=== PATIENT | male | born 1960 | race Caucasian/White ===

== ENCOUNTER 2017-11-30 17:58 | Emergency (ER) | payer MEDICARE, MEDICAID ==
[~2017-11-30] VITALS: Ht 170.2 cm; Wt 79.3 kg
[2017-11-30] MEDS ORDERED: adenosine 3mg/ml 2ml vial IV ONE ×2 (18:10)
[2017-11-30] MEDS ORDERED: nitroGLYCERIN 0.4mg SUBLingual tab SL PRN (18:15)
[2017-11-30] MEDS ORDERED: aspirin 81mg tab.chew PO ONE (18:15)
[2017-11-30 18:16] LABS: BASOPHILS # (AUTO) 0.1 X10'3 (0-0.2); BASOPHILS % (AUTO) 0.9 % (0-1); EOSINOPHILS # (AUTO) 0.2 X10'3 (0-0.9); EOSINOPHILS % (AUTO) 2.2 % (0-6); HEMATOCRIT 49.6 % (42.0-52.0); LYMPHOCYTES # (AUTO) 2.2 X10'3 (1.1-4.8); LYMPHOCYTES % (AUTO) 30.2 % (21-51); MEAN CORPUSCULAR HEMOGLOBIN 31.1 PG (27.0-31.0); MEAN CORPUSCULAR HGB CONC 34.3 % (33.0-36.5); MEAN CORPUSCULAR VOLUME 90.8 FL (78-98); MEAN PLATELET VOLUME 7.6 FL (7.4-10.4); MONOCYTES # (AUTO) 0.6 X10'3 (0-0.9); MONOCYTES % (AUTO) 8.5 % (2-12); NEUTROPHILS # (AUTO) 4.3 X10'3 (1.8-7.7); NEUTROPHILS % (AUTO) 58.2 % (42-75); PLATELET COUNT 141 X10'3 (140-440); RED BLOOD COUNT 5.46 X10'6 (4.70-6.10); RED CELL DISTRIBUTION WIDTH 15.1 % (11.5-14.5); WHITE BLOOD COUNT 7.4 X10'3 (4.5-11.0)
[2017-11-30] MEDS ORDERED: metoprolol tartrate 1mg/ml inj IV ONE ×2 (18:25→18:40)
[2017-11-30 18:26] LABS: INR 1.1 INR; PARTIAL THROMBOPLASTIN TIME 28 SECONDS (22-32); PROTHROMBIN TIME 11.4 SECONDS (9.0-12.0)
[2017-11-30 18:31] LABS: ALANINE AMINOTRANSFERASE 24 U/L (12-78); ALKALINE PHOSPHATASE 127 IU/L (46-116); ANION GAP 11 (8-16); ASPARTATE AMINO TRANSFERASE 16 U/L (10-37); BILIRUBIN,TOTAL 0.9 MG/DL (0.1-1.0); BLOOD UREA NITROGEN 15 MG/DL (7-18); BUN/CREATININE RATIO 9.4 (5.4-32.0); CALCIUM 8.5 MG/DL (8.5-10.1); CHLORIDE 109 MMOL/L (99-107); CREATININE 1.59 MG/DL (0.60-1.10); GLUCOSE 111 MG/DL (70-104); POTASSIUM 4.4 MMOL/L (3.5-5.1); SODIUM 143 MMOL/L (135-145); TOTAL CARBON DIOXIDE 22.6 MMOL/L (24-32); TOTAL PROTEIN 8.2 G/DL (6.4-8.2); eGFR 45 ML/MIN
[2017-11-30 18:54] LABS: ETHANOL < 0.010 GM/DL (0.0-0.010)
[2017-11-30] MEDS ORDERED: normal saline 1000ml 1,000 ML IV ONE (19:30)
[2017-11-30] MEDS ORDERED: METO-395 PO (20:03)
[2017-11-30 20:59] VITALS: BP 123/80
== END 2017-11-30 21:04 | disposition home or self-care (01) ==
LOC: ER 17:59
DX: I47.1 Supraventricular tachycardia (principal); N17.9 Acute kidney failure, unspecified; E86.0 Dehydration; F10.10 Alcohol abuse, uncomplicated; Y90.9 Presence of alcohol in blood, level not specified
CPT/HCPCS: 36415; 71045; 80053; 80320; 83880; 84484; 85025; 85610; 85730; 93005; 96361; 96374; 99285; J0153; J3490; J7030

== ENCOUNTER 2018-03-24 12:30 | Emergency (ER) | payer MEDICARE, MEDICAID ==
[~2018-03-24] VITALS: Ht 170.2 cm; Wt 77.0 kg
[~2018-03-24 12:30] MED LIST: METO-395 PO
[2018-03-24] MEDS ORDERED: LIDOcaine Viscous 15ml cup ONE (15:22)
[2018-03-24] MEDS ORDERED: MIDAZolam 5mg/5ml vial ONE (15:22)
[2018-03-24] MEDS ORDERED: fentaNYL/PF 50MCG/1 ML 2ML syringe ONE (15:22)
[2018-03-24 15:50] VITALS: BP 119/54
[2018-03-24 16:00] VITALS: BP 117/81
[2018-03-24 16:10] VITALS: BP 120/78
[2018-03-24 16:20] VITALS: BP 113/74
[2018-03-24 16:25] VITALS: BP 116/77
[2018-03-24] MEDS ORDERED: OMEP20TA23 PO (16:41)
[2018-03-24 17:07] VITALS: BP 127/73
== END 2018-03-24 17:11 | disposition home or self-care (01) ==
LOC: ER 12:30
DX: T18.128A Food in esophagus causing other injury, initial encounter (principal); Z79.899 Other long term (current) drug therapy; W45.8XXA Other foreign body or object entering through skin, initial encounter; Y93.89 Activity, other specified; Y92.89 Other specified places as the place of occurrence of the external cause; Y99.8 Other external cause status
CPT/HCPCS: 43247; 99152; 99153; 99285; J2250; J3010; J7030; A4620; G0500

== ENCOUNTER 2018-06-07 13:46 | Day surgery (SDC) | payer MEDICARE, MEDICAID ==
[~2018-06-07] VITALS: Ht 170.2 cm; Wt 72.7 kg
[~2018-06-07 13:46] MED LIST changes: +OMEP20TA23 PO
[2018-06-07 13:53] VITALS: BP 122/84
[2018-06-07] MEDS ORDERED: METO-395 PO (14:12)
[2018-06-07] MEDS ORDERED: OMEP20TA5 PO (14:13)
[2018-06-07] MEDS ORDERED: MIDAZolam 5mg/5ml vial ONE ×2 (14:25→14:35)
[2018-06-07] MEDS ORDERED: LIDOcaine Viscous 15ml cup ONE (14:25)
[2018-06-07] MEDS ORDERED: fentaNYL/PF 50MCG/1 ML 2ML syringe ONE (14:25)
[2018-06-07 14:49] VITALS: BP 120/83
[2018-06-07 14:59] VITALS: BP 117/77
[2018-06-07 15:09] VITALS: BP 119/72
[2018-06-07 15:19] VITALS: BP 115/74
== END 2018-06-07 15:49 | disposition home or self-care (01) ==
LOC: GI LAB 13:46
PROVIDERS: ATTEND Internal Medicine Gastroenterology
DX: K20.9 Esophagitis, unspecified (principal); K29.70 Gastritis, unspecified, without bleeding; K22.8 Other specified diseases of esophagus; K26.9 Duodenal ulcer, unspecified as acute or chronic, without hemorrhage or perforation; F17.210 Nicotine dependence, cigarettes, uncomplicated; J43.9 Emphysema, unspecified; F32.9 Major depressive disorder, single episode, unspecified; Z72.89 Other problems related to lifestyle; Z98.890 Other specified postprocedural states; Z79.899 Other long term (current) drug therapy
CPT/HCPCS: 43239; G0500; J2250; J3010; J7030; A4620

== ENCOUNTER 2018-10-26 10:57 | Emergency (ER) | payer MEDICARE, MEDICAID ==
[~2018-10-26] VITALS: Ht 167.6 cm; Wt 71.8 kg
[~2018-10-26 10:57] MED LIST changes: -OMEP20TA23 PO; +OMEP20TA5 PO
[2018-10-26] MEDS ORDERED: HYDROmorphone inj. 0.5 MG/0.5 ML DISP.SYRIN IV ONE (12:10)
[2018-10-26] MEDS ORDERED: ondansetron/PF 4mg/2ml inj IV ONE (12:10)
[2018-10-26] MEDS ORDERED: diphenhydrAMINE 50 mg/ml inj IV ONE (13:10)
[2018-10-26] MEDS ORDERED: acetaminophen 325mg tablet PO ONE (13:10)
[2018-10-26 13:41] VITALS: BP 107/76
== END 2018-10-26 13:42 | disposition home or self-care (01) ==
LOC: ER 10:58
DX: R52 Pain, unspecified (principal); T45.1X5A Adverse effect of antineoplastic and immunosuppressive drugs, initial encounter; Z79.899 Other long term (current) drug therapy; Y92.89 Other specified places as the place of occurrence of the external cause
CPT/HCPCS: 96374; 96375; 99283; J1170; J1200; J2405

== ENCOUNTER 2018-12-14 15:09 | Inpatient (IN) | payer MEDICARE, MEDICAID | END 2018-12-20 15:30 | LOC: ER 15:09 → ED HOLD 17:51 → PCU 3S 12-15 16:01 | PROC: 0DJ08ZZ Inspection of Upper Intestinal Tract, Via Natural or Artificial Opening Endoscopic (ICD-10-PCS; principal; ~2018-12-14) | DX: K22.11 Ulcer of esophagus with bleeding (principal); D62 Acute posthemorrhagic anemia; N17.9 Acute kidney failure, unspecified; E87.2 Acidosis; K92.2 Gastrointestinal hemorrhage, unspecified; E83.42 Hypomagnesemia; K70.30 Alcoholic cirrhosis of liver without ascites; E83.51 Hypocalcemia ==

== ENCOUNTER 2019-02-07 13:19 | Inpatient (IN) | payer MEDICARE, MEDICAID ==
[~2019-02-07] VITALS: Ht 172.7 cm; Wt 68.0 kg
[2019-02-07 13:56] LABS: HEMOGLOBIN 9.4 g/dl (14.0-17.9); LYMPHOCYTES # (AUTO) 0.3 X10'3 (1.1-4.8)
[2019-02-07 13:58] LABS: BASOPHILS % (AUTO) 0.6 % (0-1); EOSINOPHILS % (AUTO) 0.3 % (0-6); HEMATOCRIT 27.3 % (42.0-52.0); LYMPHOCYTES % (AUTO) 3.8 % (21-51); MEAN CORPUSCULAR HEMOGLOBIN 33.7 PG (27.0-31.0); MEAN CORPUSCULAR HGB CONC 34.4 g/dL (33.0-36.5); MEAN PLATELET VOLUME 8.8 FL (7.4-10.4); MONOCYTES % (AUTO) 0.5 % (2-12); NEUTROPHILS # (AUTO) 7.1 X10'3 (1.8-7.7); NEUTROPHILS % (AUTO) 94.8 % (42-75); PLATELET COUNT 52 X10'3 (140-440); RED BLOOD COUNT 2.79 X10'6 (4.70-6.10); RED CELL DISTRIBUTION WIDTH 15.3 % (11.5-14.5); WHITE BLOOD COUNT 7.5 X10'3 (4.5-11.0)
[2019-02-07 14:03] LABS: PARTIAL THROMBOPLASTIN TIME 32 SECONDS (22-32)
[2019-02-07 14:05] LABS: ALANINE AMINOTRANSFERASE 23 U/L (12-78); ALBUMIN 2.5 G/DL (3.4-5.0); ALKALINE PHOSPHATASE 136 IU/L (46-116); ANION GAP 6 (8-16); ASPARTATE AMINO TRANSFERASE 22 U/L (10-37); BILIRUBIN,TOTAL 0.5 MG/DL (0.1-1.0); BLOOD UREA NITROGEN 39 MG/DL (7-18); BUN/CREATININE RATIO 33.1 (5.4-32.0); CALCIUM 7.3 MG/DL (8.5-10.1); CHLORIDE 111 MMOL/L (99-107); CREATININE 1.18 MG/DL (0.60-1.10); GLUCOSE 105 MG/DL (70-104); LIPASE 131 U/L (73-393); MAGNESIUM 1.7 MG/DL (1.5-2.4); POTASSIUM 3.8 MMOL/L (3.5-5.1); SODIUM 139 MMOL/L (135-145); TOTAL CARBON DIOXIDE 21.9 MMOL/L (24-32); eGFR 63 ML/MIN
[2019-02-07 14:13] LABS: CLARITY,URINE CLEAR (Clear); COLOR,URINE YELLOW (Yellow); GLUCOSE, URINE NEGATIVE (Neg); KETONES,URINE NEGATIVE (Neg); LEUKOCYTE ESTERASE ,URINE TRACE (Neg); NITRITES, URINE NEGATIVE (Neg); OCCULT BLOOD,URINE NEGATIVE (Neg); PH,URINE 5.5 (4.8-8.0); PROTEIN,URINE NEGATIVE (Neg)
[2019-02-07] MEDS ORDERED: ondansetron/PF 4mg/2ml inj IV ONE (14:15)
[2019-02-07] MEDS ORDERED: proCHLORperazine 10 MG/2 ml inj IV ONE (14:15)
[2019-02-07] MEDS ORDERED: normal saline 1000ML IV soln IVB ONE (14:15)
[2019-02-07 14:19] LABS: UA COLLECTION TYPE CLN CATCH MIDSTREAM
[2019-02-07 14:20] LABS: BACTERIA,URINE FEW /HPF (Neg); COARSE GRANULAR CAST 0-3 /LPF (NEGATIVE); MUCUS STRANDS NONE SEEN /LPF (Neg); RBC,URINE NONE SEEN /HPF (0-2); SQUAMOUS EPITHELIAL CELL,UR FEW /LPF (FEW); WBC,URINE 0-4 /HPF (0-4)
[2019-02-07] MEDS ORDERED: LORazepam 2 mg/ml vial IV ONE (14:35)
[2019-02-07] MEDS ORDERED: bisacodyl 10mg suppository rectal RC PRN (15:55)
[2019-02-07] MEDS ORDERED: potassium Cl 20 mEq SR tablet PO PRN ×2 (15:55)
[2019-02-07] MEDS ORDERED: magnesium hydroxide 30ml (MOM) UD suspension PO PRN (15:55)
[2019-02-07] MEDS ORDERED: acetaminophen 325mg tablet PO PRN ×2 (15:55)
[2019-02-07] MEDS ORDERED: metoclopramide 5 mg/ml inj IV PRN (15:55)
[2019-02-07] MEDS ORDERED: magnesium 2GM in 50ml NS 50 ML IV PRN (15:55)
[2019-02-07] MEDS ORDERED: morphine 2 MG/ML inj. syringe IV PRN (15:55)
[2019-02-07] MEDS ORDERED: diphenhydrAMINE 50 mg/ml inj IV PRN (15:55)
[2019-02-07] MEDS ORDERED: ondansetron/PF 4mg/2ml inj IV PRN (15:55)
[2019-02-07] MEDS ORDERED: HYDROcodone/acetaminophen 5mg/325mg tablet PO PRN (15:55)
[2019-02-07] MEDS ORDERED: magnesium 4gm in 100ml NS 100 ML IV PRN (15:55)
[2019-02-07] MEDS ORDERED: mag hydrox/Alum hydrox/simeth 30ml oral suspension PO PRN (15:55)
[2019-02-07] MEDS ORDERED: diphenhydrAMINE 25mg capsule PO PRN (15:55)
[2019-02-07] MEDS ORDERED: acetaminophen 650mg rectal suppository RC PRN (15:55)
[2019-02-07] MEDS: K and/or MAG REPLACEMENT MC SCH (15:55)
[2019-02-07] MEDS ORDERED: potassium Cl 40MEQ/NS 500ml 500 ML IV PRN (15:55)
[2019-02-07] MEDS ORDERED: potassium CL 10mEq/100ml bag 100 ML IV PRN (15:55)
[2019-02-07] MEDS: dextrose 5%-normal saline 1,000 ML IV SCH (16:18)
[2019-02-07 16:23] LABS: HEMOGLOBIN A1C 4.8 % (4.5-6.2)
[2019-02-07] MEDS ORDERED: MULT-691 PO (16:30)
[2019-02-07] MEDS ORDERED: DOCU100C41 PO (16:30)
[2019-02-07] MEDS ORDERED: ACET-2778 PO (16:30)
[2019-02-07] MEDS ORDERED: OMEP40CA37 PO (16:30)
[2019-02-07] MEDS ORDERED: PROC-8 PO (16:30)
[2019-02-07] MEDS ORDERED: DEC4T PO (16:30)
[2019-02-07] MEDS: scopolamine 1.5mg patch.TD72 TD SCH (16:34)
[2019-02-07] MEDS ORDERED: ACETAMINOPHEN PO PRN (18:10)
[2019-02-07] MEDS ORDERED: proCHLORperazine 10mg tablet PO PRN (18:10)
[2019-02-07 18:35] VITALS: BP 111/60
--- NOTE | 2019-02-07 18:35 | NUR ---
PATIENT ADMITTED TO ROOM 353 FROM ER FOR NAUSEA/VOMITING FROM CHEMOTHERAPY AND DEHYDRATION. PLACED COMFORTABLE IN BED. VITAL SIGNS TAKEN AND RECORDED.
[2019-02-07] MEDS: HYDROcodone/acetaminophen 10/325mg tab PO PRN (19:58)
[2019-02-07] MEDS ORDERED: temazepam 15mg capsule PO PRN (21:00)
[2019-02-07] MEDS: dexamethasone 4mg tablet PO SCH (21:35)
[2019-02-08] VITALS: BP 94/58
[2019-02-08] MEDS: dextrose 5%-normal saline 1,000 ML IV SCH ×3 (02:06→19:20)
[2019-02-08] MEDS: HYDROcodone/acetaminophen 10/325mg tab PO PRN ×2 (03:15→19:18)
[2019-02-08 05:03] LABS: BASOPHILS % (AUTO) 0.2 % (0-1); EOSINOPHILS % (AUTO) 0.1 % (0-6); HEMATOCRIT 25.3 % (42.0-52.0); HEMOGLOBIN 8.7 g/dl (14.0-17.9); LYMPHOCYTES # (AUTO) 0.1 X10'3 (1.1-4.8); MEAN CORPUSCULAR HEMOGLOBIN 33.5 PG (27.0-31.0); MEAN CORPUSCULAR HGB CONC 34.3 g/dL (33.0-36.5); MEAN CORPUSCULAR VOLUME 97.5 FL (78-98); MEAN PLATELET VOLUME 8.6 FL (7.4-10.4); MONOCYTES % (AUTO) 0.9 % (2-12); NEUTROPHILS # (AUTO) 2.3 X10'3 (1.8-7.7); NEUTROPHILS % (AUTO) 94.8 % (42-75); RED BLOOD COUNT 2.59 X10'6 (4.70-6.10); RED CELL DISTRIBUTION WIDTH 15.5 % (11.5-14.5); WHITE BLOOD COUNT 2.4 X10'3 (4.5-11.0)
[2019-02-08 05:06] LABS: ALANINE AMINOTRANSFERASE 21 U/L (12-78); ALBUMIN 2.2 G/DL (3.4-5.0); ALBUMIN/GLOBULIN RATIO 0.9 (1.1-1.5); ALKALINE PHOSPHATASE 118 IU/L (46-116); ANION GAP 9 (8-16); ASPARTATE AMINO TRANSFERASE 19 U/L (10-37); BILIRUBIN,TOTAL 0.5 MG/DL (0.1-1.0); BLOOD UREA NITROGEN 27 MG/DL (7-18); BUN/CREATININE RATIO 24.8 (5.4-32.0); CHLORIDE 112 MMOL/L (99-107); CHOL/HDL RATIO 3.1 (0.00-4.99); CHOLESTEROL 136 MG/DL (0-200); CREATININE 1.09 MG/DL (0.60-1.10); GLUCOSE 135 MG/DL (70-104); HDL CHOLESTEROL 44 MG/DL (35-60); LDL CHOLESTEROL 74 MG/DL (50-100); MAGNESIUM 1.4 MG/DL (1.5-2.4); PHOSPHORUS 3.4 MG/DL (2.3-4.5); PLATELET COUNT 32 X10'3 (140-440); POTASSIUM 4.8 MMOL/L (3.5-5.1); SODIUM 141 MMOL/L (135-145); TOTAL PROTEIN 4.7 G/DL (6.4-8.2); TRIGLYCERIDES 123 MG/DL (20-135); eGFR 69 ML/MIN
--- NOTE | 2019-02-08 05:19 | NUR ---
PAGED DR. JAY ABOUT PATIENT'S PLATELET OF 32, WBC IS 2.4 NO NEW ORDERS MADE.
--- NOTE | 2019-02-08 06:30 | NUR ---
Problems reprioritized. Patient report given, questions answered & plan of care reviewed with SERENE MCKEON.
[2019-02-08 07:00] VITALS: BP 106/54
[2019-02-08 08:00] VITALS: BP 129/62
[2019-02-08] MEDS ORDERED: MULTIVITS TH W FE OTHER MIN PO SCH (08:00)
[2019-02-08] MEDS: K and/or MAG REPLACEMENT MC SCH (08:00)
[2019-02-08] MEDS ORDERED: non-formulary drug (Omeprazole (Prilosec) 1 CAP) PO SCH (08:00)
[2019-02-08 09:46] LABS: TOTAL CELLS COUNTED 100
[2019-02-08 09:57] LABS: PLATELET ESTIMATE DECREASED
[2019-02-08] MEDS: pantoprazole 40mg Tablet.DR PO SCH (10:16)
[2019-02-08] MEDS: dexamethasone 4mg tablet PO SCH ×2 (10:16→19:22)
[2019-02-08] MEDS: multivitamins, therapeutics tablet PO SCH (10:16)
[2019-02-08] MEDS: magnesium Cl slow-release 64mg tablet PO PRN (10:16)
[2019-02-08] MEDS: docusate sod 100mg capsule PO SCH (10:16)
[2019-02-08 10:18] LABS: ANISOCYTOSIS FEW
[2019-02-08 10:19] LABS: POIKILOCYTOSIS FEW; TEAR DROP CELLS FEW
[2019-02-08 12:00] VITALS: BP 129/62
--- NOTE | 2019-02-08 18:30 | NUR ---
Patient in room [facility]. I have received report from SERENE MCKEON and had the opportunity to ask questions and assume patient care.
[2019-02-08] MEDS: LORazepam 1 MG tablet PO PRN (19:18)
[2019-02-08 20:00] VITALS: BP_SYST 128; BP_SYST 132; BP_DIAS 60; BP_DIAS 66
[2019-02-09] VITALS: BP 128/69
[2019-02-09 05:24] LABS: BASOPHILS % (AUTO) 0.5 % (0-1); EOSINOPHILS % (AUTO) 0.7 % (0-6); HEMATOCRIT 27.4 % (42.0-52.0); HEMOGLOBIN 9.4 g/dl (14.0-17.9); LYMPHOCYTES # (AUTO) 0.1 X10'3 (1.1-4.8); LYMPHOCYTES % (AUTO) 11.6 % (21-51); MEAN CORPUSCULAR HEMOGLOBIN 33.5 PG (27.0-31.0); MEAN CORPUSCULAR HGB CONC 34.4 g/dL (33.0-36.5); MEAN CORPUSCULAR VOLUME 97.6 FL (78-98); MEAN PLATELET VOLUME 9.8 FL (7.4-10.4); MONOCYTES % (AUTO) 2.3 % (2-12); NEUTROPHILS # (AUTO) 0.9 X10'3 (1.8-7.7); NEUTROPHILS % (AUTO) 84.9 % (42-75); RED BLOOD COUNT 2.81 X10'6 (4.70-6.10); RED CELL DISTRIBUTION WIDTH 14.9 % (11.5-14.5); WHITE BLOOD COUNT 1.1 X10'3 (4.5-11.0)
[2019-02-09 05:48] LABS: ALANINE AMINOTRANSFERASE 20 U/L (12-78); ALBUMIN 2.5 G/DL (3.4-5.0); ALBUMIN/GLOBULIN RATIO 0.9 (1.1-1.5); ALKALINE PHOSPHATASE 134 IU/L (46-116); ANION GAP 11 (8-16); ASPARTATE AMINO TRANSFERASE 16 U/L (10-37); BILIRUBIN,TOTAL 0.5 MG/DL (0.1-1.0); BLOOD UREA NITROGEN 25 MG/DL (7-18); BUN/CREATININE RATIO 25.5 (5.4-32.0); CALCIUM 7.7 MG/DL (8.5-10.1); CHLORIDE 108 MMOL/L (99-107); CREATININE 0.98 MG/DL (0.60-1.10); GLUCOSE 149 MG/DL (70-104); MAGNESIUM 1.2 MG/DL (1.5-2.4); PHOSPHORUS 2.2 MG/DL (2.3-4.5); POTASSIUM 4.7 MMOL/L (3.5-5.1); SODIUM 137 MMOL/L (135-145); TOTAL CARBON DIOXIDE 18.5 MMOL/L (24-32); TOTAL PROTEIN 5.2 G/DL (6.4-8.2); eGFR 79 ML/MIN
[2019-02-09] MEDS: dextrose 5%-normal saline 1,000 ML IV SCH ×2 (05:48→13:22)
--- NOTE | 2019-02-09 06:25 | NUR ---
Problems reprioritized. Patient report given, questions answered & plan of care reviewed with ADRIEN MCKEON.
[2019-02-09] MEDS: K and/or MAG REPLACEMENT MC SCH (06:47)
[2019-02-09 06:48] LABS: PLATELET COUNT 29 X10'3 (140-440)
[2019-02-09 07:00] VITALS: BP 119/74
[2019-02-09] MEDS: multivitamins, therapeutics tablet PO SCH (07:46)
[2019-02-09] MEDS: pantoprazole 40mg Tablet.DR PO SCH (07:46)
[2019-02-09] MEDS: dexamethasone 4mg tablet PO SCH ×2 (07:46→19:15)
[2019-02-09] MEDS: docusate sod 100mg capsule PO SCH (07:46)
[2019-02-09 09:31] LABS: ELLIPTOCYTES FEW; PLATELET ESTIMATE DECREASED; SCHISTOCYTES FEW; TEAR DROP CELLS FEW; TOTAL CELLS COUNTED 100
--- NOTE | 2019-02-09 10:08 | NUR ---
Report to Lupe MCKEON. Addendum: 02/09/19 at 1008 by Evelyn Castellanos RN Amended: Links added.
[2019-02-09] MEDS: TBO-filgrastim 480 MCG/0.8ml syringe SQ SCH (11:02)
[2019-02-09] MEDS: LORazepam 1 MG tablet PO PRN ×2 (11:02→19:14)
[2019-02-09] MEDS: HYDROcodone/acetaminophen 10/325mg tab PO PRN ×2 (11:03→19:14)
[2019-02-09 11:49] VITALS: BP 123/56
[2019-02-09 11:51] VITALS: BP 127/67
[2019-02-09 11:52] VITALS: BP 107/61
[2019-02-09] MEDS: sodium bicarbonate 650mg tablet PO SCH ×2 (13:20→19:15)
--- NOTE | 2019-02-09 18:48 | NUR ---
Problems reprioritized. Patient report given, questions answered & plan of care reviewed with ANNAMARIA YIN RN.
--- NOTE | 2019-02-09 18:50 | NUR ---
Patient in room [facility]. I have received report from BARTOLO MCKEON and had the opportunity to ask questions and assume patient care.
[2019-02-09 20:00] VITALS: BP_SYST 121; BP_SYST 127; BP_DIAS 69; BP_DIAS 76
[2019-02-10] VITALS: BP 127/67
[2019-02-10] MEDS: dextrose 5%-normal saline 1,000 ML IV SCH ×3 (04:35→17:44)
[2019-02-10 04:38] LABS: HEMATOCRIT 24.3 % (42.0-52.0); HEMOGLOBIN 8.4 g/dl (14.0-17.9); MEAN CORPUSCULAR HEMOGLOBIN 33.2 PG (27.0-31.0); MONOCYTES # (AUTO) 0.1 X10'3 (0-0.9); NEUTROPHILS # (AUTO) 0.3 X10'3 (1.8-7.7)
[2019-02-10 04:41] LABS: BASOPHILS % (AUTO) 1.8 % (0-1); EOSINOPHILS % (AUTO) 0.5 % (0-6); LYMPHOCYTES # (AUTO) 0.2 X10'3 (1.1-4.8); LYMPHOCYTES % (AUTO) 37.4 % (21-51); MEAN CORPUSCULAR HGB CONC 34.6 g/dL (33.0-36.5); MEAN PLATELET VOLUME 9.2 FL (7.4-10.4); MONOCYTES % (AUTO) 19.6 % (2-12); NEUTROPHILS % (AUTO) 40.7 % (42-75); RED BLOOD COUNT 2.53 X10'6 (4.70-6.10)
[2019-02-10 04:45] LABS: PLATELET COUNT 28 X10'3 (140-440)
[2019-02-10 04:46] LABS: WHITE BLOOD COUNT 0.7 X10'3 (4.5-11.0)
[2019-02-10 05:03] LABS: ALANINE AMINOTRANSFERASE 27 U/L (12-78); ALBUMIN 2.3 G/DL (3.4-5.0); ALKALINE PHOSPHATASE 116 IU/L (46-116); ANION GAP 8 (8-16); ASPARTATE AMINO TRANSFERASE 20 U/L (10-37); BILIRUBIN,TOTAL 0.6 MG/DL (0.1-1.0); BLOOD UREA NITROGEN 20 MG/DL (7-18); BUN/CREATININE RATIO 21.5 (5.4-32.0); CALCIUM 7.8 MG/DL (8.5-10.1); CHLORIDE 109 MMOL/L (99-107); CREATININE 0.93 MG/DL (0.60-1.10); GLUCOSE 108 MG/DL (70-104); MAGNESIUM 1.2 MG/DL (1.5-2.4); PHOSPHORUS 1.8 MG/DL (2.3-4.5); POTASSIUM 4.4 MMOL/L (3.5-5.1); SODIUM 138 MMOL/L (135-145); TOTAL CARBON DIOXIDE 21.3 MMOL/L (24-32); TOTAL PROTEIN 4.7 G/DL (6.4-8.2); eGFR 83 ML/MIN
--- NOTE | 2019-02-10 05:10 | NUR ---
CALLED DR. HERR AND WAS INFORMED OF CRITICAL PLATELETT 28 AND WBC 0.7 NO NEW ORDERS MADE. "JUST CONTINUE ON NEUTROPENIC PRECAUTION".
--- NOTE | 2019-02-10 06:25 | NUR ---
Patient in room [facility]. I have received report from MIKE Khoury and had the opportunity to ask questions and assume patient care.
--- NOTE | 2019-02-10 06:30 | NUR ---
Problems reprioritized. Patient report given, questions answered & plan of care reviewed with JASPER MCKEON.
[2019-02-10 07:30] VITALS: BP 115/73
[2019-02-10] MEDS: docusate sod 100mg capsule PO SCH (08:00)
[2019-02-10] MEDS: K and/or MAG REPLACEMENT MC SCH (08:00)
[2019-02-10] MEDS: pantoprazole 40mg Tablet.DR PO SCH (09:37)
[2019-02-10] MEDS: dexamethasone 4mg tablet PO SCH ×2 (09:38→20:43)
[2019-02-10] MEDS: multivitamins, therapeutics tablet PO SCH (09:38)
[2019-02-10] MEDS: sodium bicarbonate 650mg tablet PO SCH ×3 (09:38→20:38)
[2019-02-10] MEDS: HYDROcodone/acetaminophen 10/325mg tab PO PRN ×2 (09:39→20:38)
[2019-02-10] MEDS: TBO-filgrastim 480 MCG/0.8ml syringe SQ SCH (09:45)
[2019-02-10] MEDS: magnesium Cl slow-release 64mg tablet PO PRN (09:59)
[2019-02-10 11:53] VITALS: BP 129/63
[2019-02-10 11:54] VITALS: BP_SYST 108; BP_SYST 125; BP_SYST 129; BP_DIAS 59; BP_DIAS 63; BP_DIAS 71
[2019-02-10] MEDS: scopolamine 1.5mg patch.TD72 TD SCH (16:12)
--- NOTE | 2019-02-10 18:10 | NUR ---
Problems reprioritized. Patient report given, questions answered & plan of care reviewed with MIKE Holcomb and MIKE Olvera.
--- NOTE | 2019-02-10 18:35 | NUR ---
Problems reprioritized. Patient report given, questions answered & plan of care reviewed with MIKE Metzger.
[2019-02-10] MEDS ORDERED: potassium Cl 20 mEq SR tablet PO PRN ×2 (19:10)
[2019-02-10] MEDS ORDERED: potassium CL 10mEq/100ml bag 100 ML IV PRN (19:10)
[2019-02-10] MEDS ORDERED: magnesium 4gm in 100ml NS 100 ML IV PRN (19:10)
[2019-02-10] MEDS ORDERED: magnesium Cl slow-release 64mg tablet PO PRN (19:10)
[2019-02-11] MEDS: HYDROcodone/acetaminophen 10/325mg tab PO PRN (04:27)
[2019-02-11 04:48] LABS: BASOPHILS % (AUTO) 0.1 % (0-1); EOSINOPHILS % (AUTO) 0.1 % (0-6); HEMATOCRIT 25.6 % (42.0-52.0); HEMOGLOBIN 8.9 g/dl (14.0-17.9); LYMPHOCYTES # (AUTO) 0.2 X10'3 (1.1-4.8); LYMPHOCYTES % (AUTO) 18.8 % (21-51); MEAN CORPUSCULAR HEMOGLOBIN 33.3 PG (27.0-31.0); MEAN CORPUSCULAR HGB CONC 34.9 g/dL (33.0-36.5); MEAN CORPUSCULAR VOLUME 95.5 FL (78-98); MEAN PLATELET VOLUME 10.4 FL (7.4-10.4); MONOCYTES # (AUTO) 0.3 X10'3 (0-0.9); MONOCYTES % (AUTO) 24.9 % (2-12); NEUTROPHILS # (AUTO) 0.7 X10'3 (1.8-7.7); NEUTROPHILS % (AUTO) 56.1 % (42-75); RED BLOOD COUNT 2.68 X10'6 (4.70-6.10); RED CELL DISTRIBUTION WIDTH 14.8 % (11.5-14.5); WHITE BLOOD COUNT 1.3 X10'3 (4.5-11.0)
[2019-02-11 04:51] LABS: ALANINE AMINOTRANSFERASE 48 U/L (12-78); ALBUMIN 2.3 G/DL (3.4-5.0); ALKALINE PHOSPHATASE 131 IU/L (46-116); ANION GAP 7 (8-16); ASPARTATE AMINO TRANSFERASE 23 U/L (10-37); BILIRUBIN,TOTAL 0.6 MG/DL (0.1-1.0); BLOOD UREA NITROGEN 22 MG/DL (7-18); BUN/CREATININE RATIO 26.8 (5.4-32.0); CALCIUM 7.9 MG/DL (8.5-10.1); CHLORIDE 110 MMOL/L (99-107); CREATININE 0.82 MG/DL (0.60-1.10); GLUCOSE 117 MG/DL (70-104); MAGNESIUM 1.4 MG/DL (1.5-2.4); POTASSIUM 4.6 MMOL/L (3.5-5.1); SODIUM 138 MMOL/L (135-145); TOTAL CARBON DIOXIDE 20.7 MMOL/L (24-32); TOTAL PROTEIN 4.7 G/DL (6.4-8.2); eGFR > 90 ML/MIN
[2019-02-11 05:59] LABS: PLATELET COUNT 24 X10'3 (140-440)
[2019-02-11 07:29] LABS: TOTAL CELLS COUNTED 50
[2019-02-11 07:30] LABS: PLATELET ESTIMATE DECREASED
[2019-02-11 07:31] LABS: TEAR DROP CELLS 1+; TOXIC GRANULATION 2+
[2019-02-11 08:00] VITALS: BP_SYST 117; BP_SYST 121; BP_DIAS 50; BP_DIAS 55
[2019-02-11] MEDS: K and/or MAG REPLACEMENT MC SCH (08:00)
[2019-02-11] MEDS: docusate sod 100mg capsule PO SCH (08:00)
[2019-02-11] MEDS: pantoprazole 40mg Tablet.DR PO SCH (08:48)
[2019-02-11] MEDS: multivitamins, therapeutics tablet PO SCH (08:49)
[2019-02-11] MEDS: sodium bicarbonate 650mg tablet PO SCH ×2 (08:49→13:38)
[2019-02-11] MEDS: dexamethasone 4mg tablet PO SCH (08:49)
[2019-02-11] MEDS: TBO-filgrastim 480 MCG/0.8ml syringe SQ SCH (08:50)
[2019-02-11] MEDS: morphine 2 MG/ML inj. syringe IV PRN ×2 (08:53→13:38)
[2019-02-11] MEDS: dextrose 5%-normal saline 1,000 ML IV SCH (08:55)
[2019-02-11] MEDS ORDERED: ONDA4TAB6 PO (09:42)
[2019-02-11] MEDS ORDERED: SODI650T29 PO (09:42)
[2019-02-11 11:00] VITALS: BP 105/55
--- NOTE | 2019-02-11 13:25 | NUR ---
Pt. having explosive diarrhea. Charge nurse made aware. [facility] -infection control contacted. oked to send pt. home with no stool sample taken. Cleaning pt. up, giving pt. some medication for pain. [facility] here to deliver medications. Will review discharge paperwork with pt.
--- NOTE | 2019-02-11 14:45 | NUR ---
PT. DISCHARGED AFTER REVIEWING DISCHARGE PAPERWORK. [facility] DELIVERED BEDSIDE MEDICATIONS PAIN AND ZOFRAN. PT AWARE HE NEEDS TO F/U WITH DR CUADRA THURSDAY. HE IS AWARE OF HIS LOW WBC COUNT. PROVIDED MASKS, AND EDUCATED PT. ON INFECTION CONTROL/HAND HYGIENE. IV DC'D, SOME BLEEDING NOTED. RE-BANDAGE IV SITE AND HELD PRESSURE. PT KNOWS TO F/U WITH PCP WELL. ALL BELONGINGS GATHERED AND TAKEN HOME WITH PT. PT WAITED FOR SISTER TO ARRIVE TRANSPORT. PT. WAS ESCORTED TO HIS SISTERS VEHICLE IN A W/C WITH A MASK ON TO GO HOME. WRISTBAND REMOVED. PT KNOWS TO HYDRATE HIMSELF. PT. KNOWS TO RETURN TO THE ER IF ANY WORSENING SYMPTOMS.
== END 2019-02-11 14:48 | disposition home health service (06) | DRG 682 ==
LOC: ER 13:20 → SUR 3N 19:21 → CMPBEDREQ 19:41
PROVIDERS: ADMIT Family Medicine; ATTEND Family Medicine
DX: N17.9 Acute kidney failure, unspecified (principal); E43 Unspecified severe protein-calorie malnutrition; D61.818 Other pancytopenia; E87.2 Acidosis; E86.0 Dehydration; C76.0 Malignant neoplasm of head, face and neck; D64.9 Anemia, unspecified; K21.9 Gastro-esophageal reflux disease without esophagitis; J44.9 Chronic obstructive pulmonary disease, unspecified; D69.6 Thrombocytopenia, unspecified; K74.60 Unspecified cirrhosis of liver; T45.1X5A Adverse effect of antineoplastic and immunosuppressive drugs, initial encounter; Z80.51 Family history of malignant neoplasm of kidney; Z87.891 Personal history of nicotine dependence; Z68.22 Body mass index [BMI] 22.0-22.9, adult
CPT/HCPCS: 36415; 71045; 80053; 80061; 81001; 83036; 83690; 83735; 84100; 84484; 85025; 85610; 85730; 87070; 87088; 93005; 96361; 96374; 96375; 97116; 97161; 97530; 99285; G0378; J0780; J1442; J2060; J2270; J2405; J7042; J8540

== ENCOUNTER 2019-04-02 14:33 | Emergency (ER) | payer MEDICARE, MEDICAID ==
[~2019-04-02] VITALS: Ht 167.6 cm; Wt 65.9 kg
[~2019-04-02 14:33] MED LIST changes: +ACET-2778 PO; +DEC4T PO; +DOCU100C41 PO; +GABA-532 PO; -METO-395 PO; +MULT-691 PO; -OMEP20TA5 PO; +OMEP40CA37 PO; +ONDA4TAB6 PO; +PROC-8 PO; +SODI650T29 PO
[2019-04-02] MEDS ORDERED: LIDOcaine 2% 10ml TOPICAL JELLY (Urojet) MM ONE (16:20)
[2019-04-02 17:23] LABS: CLARITY,URINE SLIGHTLY CLOUDY (Clear); COLOR,URINE YELLOW (Yellow); GLUCOSE, URINE NEGATIVE (Neg); KETONES,URINE NEGATIVE (Neg); LEUKOCYTE ESTERASE ,URINE MODERATE (Neg); NITRITES, URINE NEGATIVE (Neg); OCCULT BLOOD,URINE LARGE (Neg); PH,URINE 7.5 (4.8-8.0); PROTEIN,URINE TRACE mg/dl (Neg)
[2019-04-02 17:29] LABS: UA COLLECTION TYPE FOLEY CATH
[2019-04-02 17:30] LABS: BACTERIA,URINE NONE SEEN /HPF (Neg); MUCUS STRANDS FEW /LPF (Neg); SQUAMOUS EPITHELIAL CELL,UR NONE SEEN /LPF (FEW)
[2019-04-02] MEDS ORDERED: CEPH250T PO (17:34)
[2019-04-02 17:51] VITALS: BP 143/72
== END 2019-04-02 17:52 | disposition home or self-care (01) ==
LOC: ER 14:33
DX: T83.098A Other mechanical complication of other urinary catheter, initial encounter (principal); N39.0 Urinary tract infection, site not specified; J44.9 Chronic obstructive pulmonary disease, unspecified; Z79.2 Long term (current) use of antibiotics; Z79.899 Other long term (current) drug therapy
CPT/HCPCS: 51702; 81001; 99284

== ENCOUNTER 2019-04-08 15:59 | Emergency (ER) | payer MEDICARE, MEDICAID ==
[~2019-04-08] VITALS: Ht 167.6 cm; Wt 65.0 kg
[~2019-04-08 15:59] MED LIST changes: +CEPH250T PO; +OMEP40CA13 PO; -OMEP40CA37 PO
[2019-04-08] MEDS ORDERED: CefTRIAXone 2gm/D5W 50ml 50 ML IV ONE (17:30)
[2019-04-08] MEDS ORDERED: normal saline 1000ML IV soln IV ONE (17:30)
[2019-04-08 18:08] LABS: BASOPHILS # (AUTO) 0.1 X10'3 (0-0.2); BASOPHILS % (AUTO) 1.4 % (0-1); EOSINOPHILS # (AUTO) 0.5 X10'3 (0-0.9); EOSINOPHILS % (AUTO) 10.1 % (0-6); HEMATOCRIT 25.9 % (42.0-52.0); HEMOGLOBIN 8.8 g/dl (14.0-17.9); LYMPHOCYTES # (AUTO) 1.2 X10'3 (1.1-4.8); LYMPHOCYTES % (AUTO) 26.3 % (21-51); MEAN CORPUSCULAR HEMOGLOBIN 33.9 PG (27.0-31.0); MEAN CORPUSCULAR HGB CONC 34.1 g/dL (33.0-36.5); MEAN CORPUSCULAR VOLUME 99.3 FL (78-98); MEAN PLATELET VOLUME 7.1 FL (7.4-10.4); MONOCYTES # (AUTO) 0.4 X10'3 (0-0.9); MONOCYTES % (AUTO) 9.5 % (2-12); NEUTROPHILS # (AUTO) 2.5 X10'3 (1.8-7.7); NEUTROPHILS % (AUTO) 52.7 % (42-75); PLATELET COUNT 136 X10'3 (140-440); RED BLOOD COUNT 2.61 X10'6 (4.70-6.10); RED CELL DISTRIBUTION WIDTH 15.2 % (11.5-14.5); WHITE BLOOD COUNT 4.7 X10'3 (4.5-11.0)
[2019-04-08 18:20] LABS: PARTIAL THROMBOPLASTIN TIME 33 SECONDS (22-32)
[2019-04-08 18:25] LABS: ALANINE AMINOTRANSFERASE 13 U/L (12-78); ALBUMIN 2.6 G/DL (3.4-5.0); ALBUMIN/GLOBULIN RATIO 0.8 (1.1-1.5); ALKALINE PHOSPHATASE 183 IU/L (46-116); ANION GAP 8 (8-16); ASPARTATE AMINO TRANSFERASE 16 U/L (10-37); BILIRUBIN,TOTAL 0.7 MG/DL (0.1-1.0); BLOOD UREA NITROGEN 19 MG/DL (7-18); BUN/CREATININE RATIO 13.7 (5.4-32.0); CALCIUM 8.2 MG/DL (8.5-10.1); CHLORIDE 113 MMOL/L (99-107); CREATININE 1.39 MG/DL (0.60-1.10); GLUCOSE 92 MG/DL (70-104); MAGNESIUM 1.8 MG/DL (1.5-2.4); POTASSIUM 4.2 MMOL/L (3.5-5.1); SODIUM 144 MMOL/L (135-145); TOTAL CARBON DIOXIDE 22.7 MMOL/L (24-32); TOTAL PROTEIN 5.8 G/DL (6.4-8.2); eGFR 52 ML/MIN
[2019-04-08 18:55] VITALS: BP 142/76
[2019-04-08 18:59] LABS: CLARITY,URINE CLOUDY (Clear); COLOR,URINE YELLOW (Yellow); GLUCOSE, URINE NEGATIVE (Neg); KETONES,URINE NEGATIVE (Neg); LEUKOCYTE ESTERASE ,URINE LARGE (Neg); NITRITES, URINE NEGATIVE (Neg); OCCULT BLOOD,URINE LARGE (Neg); PROTEIN,URINE NEGATIVE (Neg); UROBILINOGEN,URINE 0.2 E.U/dL (0.2-1.0)
[2019-04-08 19:02] LABS: UA COLLECTION TYPE FOLEY CATH
[2019-04-08 19:21] LABS: WBC,URINE TNTC /HPF (0-4)
[2019-04-08 19:22] LABS: BACTERIA,URINE 3+ /HPF (Neg); MUCUS STRANDS NONE SEEN /LPF (Neg); SQUAMOUS EPITHELIAL CELL,UR NONE SEEN /LPF (FEW); WBC CLUMPS,URINE MODERATE /HPF (NEGATIVE)
[2019-04-08] MEDS ORDERED: CEPH500C5 PO (19:31)
[2019-04-08] MEDS ORDERED: CIPR-230 PO (19:37)
[2019-04-08] MEDS ORDERED: heparin sodium, porcine/PF 100unit/ml 5ML syringe IV STA (19:41)
== END 2019-04-08 19:54 | disposition home or self-care (01) ==
LOC: ER 16:00
DX: S20.211A Contusion of right front wall of thorax, initial encounter (principal); N39.0 Urinary tract infection, site not specified; R42 Dizziness and giddiness; J44.9 Chronic obstructive pulmonary disease, unspecified; F17.200 Nicotine dependence, unspecified, uncomplicated; C76.0 Malignant neoplasm of head, face and neck; Z96.0 Presence of urogenital implants; Z79.2 Long term (current) use of antibiotics; Z79.899 Other long term (current) drug therapy; X99.8XXA Assault by other sharp object, initial encounter; Y93.89 Activity, other specified; Y92.89 Other specified places as the place of occurrence of the external cause; Y99.8 Other external cause status
CPT/HCPCS: 36415; 71045; 74176; 80053; 81001; 83605; 83735; 84145; 85025; 85610; 85730; 87040; 87077; 87088; 87186; 93005; 96374; 99285; J0696; J1642; J7030

== ENCOUNTER 2019-04-15 12:45 | Emergency (ER) | payer MEDICARE, MEDICAID ==
[~2019-04-15] VITALS: Ht 167.6 cm; Wt 65.0 kg
[~2019-04-15 12:45] MED LIST changes: -CEPH250T PO; +CIPR-230 PO
[2019-04-15 12:59] VITALS: BP 102/66
== END 2019-04-15 14:01 | disposition home or self-care (01) ==
LOC: ER 12:46
DX: R60.0 Localized edema (principal); J44.9 Chronic obstructive pulmonary disease, unspecified; Z46.6 Encounter for fitting and adjustment of urinary device; Z79.2 Long term (current) use of antibiotics; Z79.899 Other long term (current) drug therapy
CPT/HCPCS: 99281

== ENCOUNTER 2019-06-10 10:58 | Day surgery (SDC) | payer MEDICARE, MEDICAID ==
[~2019-06-10] VITALS: Ht 167.6 cm; Wt 63.6 kg
[~2019-06-10 10:58] MED LIST changes: -CIPR-230 PO
[2019-06-10 11:05] VITALS: BP 145/88
[2019-06-10] MEDS ORDERED: UNKNOWN DIURETIC (11:22)
[2019-06-10] MEDS ORDERED: fentaNYL/PF 50MCG/1 ML 2ML syringe ONE (11:26)
[2019-06-10] MEDS ORDERED: MIDAZolam 5mg/5ml vial ONE (11:27)
[2019-06-10] MEDS ORDERED: LIDOcaine Viscous 15ml cup ONE (11:27)
[2019-06-10 11:53] VITALS: BP 112/67
[2019-06-10 11:56] VITALS: BP 112/67
[2019-06-10 12:03] VITALS: BP 106/70
[2019-06-10 12:13] VITALS: BP 96/70
[2019-06-10 12:23] VITALS: BP 103/53
== END 2019-06-10 12:30 | disposition home or self-care (01) ==
LOC: GI LAB 10:58
PROVIDERS: ATTEND Internal Medicine Gastroenterology
DX: K21.0 Gastro-esophageal reflux disease with esophagitis (principal); K22.8 Other specified diseases of esophagus; Z79.899 Other long term (current) drug therapy
CPT/HCPCS: 43239; G0500; J2250; J3010; J7040; 88305; 99152; A4620

== ENCOUNTER 2019-10-15 14:23 | Emergency (ER) | payer MEDICARE, MEDICAID ==
[~2019-10-15] VITALS: Ht 167.6 cm; Wt 63.0 kg
[~2019-10-15 14:23] MED LIST changes: -ACET-2778 PO; -DEC4T PO; -DOCU100C41 PO; -GABA-532 PO; -MULT-691 PO; -ONDA4TAB6 PO; -PROC-8 PO; -SODI650T29 PO; +UNKNOWN DIURETIC
[2019-10-15 15:12] LABS: BASOPHILS # (AUTO) 0.1 X10'3 (0-0.2); EOSINOPHILS # (AUTO) 0.1 X10'3 (0-0.9); EOSINOPHILS % (AUTO) 1.9 % (0-6); LYMPHOCYTES # (AUTO) 1.6 X10'3 (1.1-4.8); MONOCYTES # (AUTO) 0.3 X10'3 (0-0.9); RED BLOOD COUNT 4.92 X10'6 (4.70-6.10)
[2019-10-15 15:15] LABS: BASOPHILS % (AUTO) 1.8 % (0-1); HEMATOCRIT 45.4 % (42.0-52.0); HEMOGLOBIN 15.8 g/dl (14.0-17.9); LYMPHOCYTES % (AUTO) 29.8 % (21-51); MEAN CORPUSCULAR HEMOGLOBIN 32.1 PG (27.0-31.0); MEAN CORPUSCULAR HGB CONC 34.8 g/dL (33.0-36.5); MEAN CORPUSCULAR VOLUME 92.3 FL (78-98); MONOCYTES % (AUTO) 6.6 % (2-12); NEUTROPHILS # (AUTO) 3.1 X10'3 (1.8-7.7); NEUTROPHILS % (AUTO) 59.9 % (42-75); PLATELET COUNT 139 X10'3 (140-440); RED CELL DISTRIBUTION WIDTH 13.8 % (11.5-14.5); WHITE BLOOD COUNT 5.2 X10'3 (4.5-11.0)
[2019-10-15 15:25] LABS: ALANINE AMINOTRANSFERASE 22 U/L (12-78); ALBUMIN 4.4 G/DL (3.4-5.0); ALBUMIN/GLOBULIN RATIO 1.2 (1.1-1.5); ALKALINE PHOSPHATASE 136 IU/L (46-116); ANION GAP 16 (8-16); ASPARTATE AMINO TRANSFERASE 22 U/L (10-37); BILIRUBIN,TOTAL 0.6 MG/DL (0.1-1.0); BLOOD UREA NITROGEN 36 MG/DL (7-18); BUN/CREATININE RATIO 25.7 (5.4-32.0); CALCIUM 8.9 MG/DL (8.5-10.1); CHLORIDE 108 MMOL/L (99-107); GLUCOSE 94 MG/DL (70-104); POTASSIUM 4.7 MMOL/L (3.5-5.1); SODIUM 143 MMOL/L (135-145); TOTAL CARBON DIOXIDE 19.4 MMOL/L (24-32); TOTAL PROTEIN 8.2 G/DL (6.4-8.2); eGFR 52 ML/MIN
[2019-10-15] MEDS ORDERED: ondansetron/PF 4mg/2ml inj IV ONE (15:40)
[2019-10-15] MEDS ORDERED: morphine 4 MG/ML inj SYRINge IV ONE (15:40)
[2019-10-15] MEDS ORDERED: aspirin 325mg tablet PO ONE (15:40)
[2019-10-15] MEDS ORDERED: ipratropium/albuterol 3ml nebule NEB ONE (15:45)
[2019-10-15] MEDS ORDERED: predniSONE 20 mg tablet PO ONE (15:45)
[2019-10-15] MEDS ORDERED: aspirin 81mg tab.chew PO ONE (15:45)
[2019-10-15] MEDS ORDERED: LORazepam 1 MG tablet PO ONE (16:20)
[2019-10-15 17:37] VITALS: BP 140/77
--- NOTE | 2019-10-15 18:26 | NUR ---
PT RESTING COMFORTABLY IN ROOM. VSS
== END 2019-10-15 19:19 | disposition home or self-care (01) ==
LOC: ER 14:23
DX: R07.89 Other chest pain (principal); R42 Dizziness and giddiness; J44.9 Chronic obstructive pulmonary disease, unspecified; F17.200 Nicotine dependence, unspecified, uncomplicated; Z79.899 Other long term (current) drug therapy
CPT/HCPCS: 36415; 71045; 80053; 84484; 85025; 93005; 94640; 96374; 96375; 99284; J2270; J2405; J7512; 94760

== ENCOUNTER 2022-02-17 18:36 | Inpatient (IN) | payer BC, MEDICAID ==
[~2022-02-17] VITALS: Ht 165.1 cm; Wt 68.1 kg
[~2022-02-17 18:36] MED LIST changes: -OMEP40CA13 PO; +OMEP40CA21 PO
[2022-02-17 19:09] LABS: EOSINOPHILS # (AUTO) 0.1 X10'3 (0-0.9); LYMPHOCYTES # (AUTO) 0.9 X10'3 (1.1-4.8); MEAN PLATELET VOLUME 7.7 FL (7.4-10.4)
[2022-02-17 19:11] LABS: BASOPHILS # (AUTO) 0.1 X10'3 (0-0.2); BASOPHILS % (AUTO) 1.3 % (0-1); EOSINOPHILS % (AUTO) 1.7 % (0-6); HEMATOCRIT 40.8 % (42.0-52.0); LYMPHOCYTES % (AUTO) 17.7 % (21-51); MEAN CORPUSCULAR HEMOGLOBIN 30.2 PG (27.0-31.0); MEAN CORPUSCULAR HGB CONC 34.3 g/dL (33.0-36.5); MEAN CORPUSCULAR VOLUME 88.1 FL (78-98); MONOCYTES # (AUTO) 0.4 X10'3 (0-0.9); MONOCYTES % (AUTO) 7.2 % (2-12); NEUTROPHILS # (AUTO) 3.8 X10'3 (1.8-7.7); NEUTROPHILS % (AUTO) 72.1 % (42-75); PLATELET COUNT 181 X10'3 (140-440); RED BLOOD COUNT 4.63 X10'6 (4.70-6.10); RED CELL DISTRIBUTION WIDTH 15.1 % (11.5-14.5); WHITE BLOOD COUNT 5.3 X10'3 (4.5-11.0)
[2022-02-17 19:29] LABS: ALANINE AMINOTRANSFERASE 26 U/L (12-78); ALBUMIN 3.3 G/DL (3.4-5.0); ALBUMIN/GLOBULIN RATIO 0.8 (1.1-1.5); ALKALINE PHOSPHATASE 175 IU/L (46-116); ANION GAP 13 (8-16); ASPARTATE AMINO TRANSFERASE 35 U/L (10-37); BILIRUBIN,TOTAL 0.8 MG/DL (0.1-1.0); BLOOD UREA NITROGEN 22 MG/DL (7-18); BUN/CREATININE RATIO 15.1 (5.4-32.0); CALCIUM 8.8 MG/DL (8.5-10.1); CHLORIDE 107 MMOL/L (99-107); CREATININE 1.46 MG/DL (0.60-1.10); GLUCOSE 115 MG/DL (70-104); POTASSIUM 4.3 MMOL/L (3.5-5.1); SODIUM 142 MMOL/L (135-145); TOTAL CARBON DIOXIDE 22.3 MMOL/L (24-32); TOTAL PROTEIN 7.4 G/DL (6.4-8.2); eGFR 49 ML/MIN
--- NOTE | 2022-02-17 21:12 | NUR ---
Patient resting comfortably on gurney, HR WNL now 94
[2022-02-17] MEDS ORDERED: nitroGLYCERIN 0.4mg/hour patch TD ONE (22:35)
[2022-02-17] MEDS ORDERED: aspirin 81mg tab.chew PO ONE (22:35)
[2022-02-17] MEDS ORDERED: ASCO100031 PO (22:55)
[2022-02-18] MEDS ORDERED: magnesium hydroxide 30ml (MOM) UD suspension PO PRN (01:25)
[2022-02-18] MEDS ORDERED: magnesium 2GM in 50ml NS 50 ML IV PRN (01:25)
[2022-02-18] MEDS ORDERED: ondansetron/PF 4mg/2ml inj IV PRN (01:25)
[2022-02-18] MEDS ORDERED: morphine 2 MG/ML inj. syringe IV PRN (01:25)
[2022-02-18] MEDS ORDERED: POTASSIUM BICARB 20meq eff tab 20 MEQ TABLET.EFF PO PRN ×2 (01:25)
[2022-02-18] MEDS: normal saline 1000ml 1,000 ML IV SCH ×3 (01:25→20:10)
[2022-02-18] MEDS ORDERED: mag hydrox/Alum hydrox/simeth 30ml oral suspension PO PRN (01:25)
[2022-02-18] MEDS ORDERED: potassium CL 10mEq/100ml bag 100 ML IV PRN (01:25)
[2022-02-18] MEDS ORDERED: acetaminophen 325mg tablet PO PRN (01:25)
[2022-02-18] MEDS ORDERED: PERFLUTREN PROTEIN-A MICROSPHR (Optison) 0.22 MG/ML 3ML VIAL IV ONE (01:25)
[2022-02-18] MEDS ORDERED: magnesium Cl slow-release 64mg tablet PO PRN (01:25)
[2022-02-18] MEDS ORDERED: magnesium 4gm in 100ml NS 100 ML IV PRN (01:25)
[2022-02-18] MEDS ORDERED: CYAN-51 PO (02:58)
[2022-02-18 07:22] LABS: MAGNESIUM 1.9 MG/DL (1.5-2.4); POTASSIUM 4.5 MMOL/L (3.5-5.1)
[2022-02-18] MEDS: docusate sod 100mg capsule PO SCH ×2 (08:00→20:10)
[2022-02-18] MEDS: K and/or MAG REPLACEMENT MC SCH ×2 (08:00→20:00)
[2022-02-18 08:37] LABS: BASOPHILS # (AUTO) 0.1 X10'3 (0-0.2); EOSINOPHILS # (AUTO) 0.1 X10'3 (0-0.9); EOSINOPHILS % (AUTO) 4.5 % (0-6); HEMATOCRIT 35.9 % (42.0-52.0); HEMOGLOBIN 11.7 g/dl (14.0-17.9); LYMPHOCYTES # (AUTO) 0.8 X10'3 (1.1-4.8); MEAN CORPUSCULAR HEMOGLOBIN 28.9 PG (27.0-31.0); MEAN CORPUSCULAR HGB CONC 32.7 g/dL (33.0-36.5); MEAN CORPUSCULAR VOLUME 88.4 FL (78-98); MEAN PLATELET VOLUME 7.6 FL (7.4-10.4); MONOCYTES # (AUTO) 0.2 X10'3 (0-0.9); MONOCYTES % (AUTO) 7.9 % (2-12); NEUTROPHILS # (AUTO) 1.7 X10'3 (1.8-7.7); NEUTROPHILS % (AUTO) 57.6 % (42-75); PLATELET COUNT 150 X10'3 (140-440); RED BLOOD COUNT 4.06 X10'6 (4.70-6.10); RED CELL DISTRIBUTION WIDTH 14.7 % (11.5-14.5)
[2022-02-18 08:50] LABS: APTT 30 SECONDS (22-32)
[2022-02-18 08:51] LABS: % IRON SATURATION 26 % (11-46); IRON 67 UG/DL (53-167); TOTAL IRON BINDING CAPACITY 255 UG/DL (259-388)
[2022-02-18] MEDS: pantoprazole 40mg Tablet.DR PO SCH (08:53)
[2022-02-18] MEDS: ascorbic acid 500mg tablet PO SCH (08:53)
[2022-02-18 09:02] LABS: ALANINE AMINOTRANSFERASE 22 U/L (12-78); ALBUMIN 2.8 G/DL (3.4-5.0); ALBUMIN/GLOBULIN RATIO 0.8 (1.1-1.5); ALKALINE PHOSPHATASE 141 IU/L (46-116); ANION GAP 8 (8-16); ASPARTATE AMINO TRANSFERASE 30 U/L (10-37); BILIRUBIN,TOTAL 0.8 MG/DL (0.1-1.0); BLOOD UREA NITROGEN 24 MG/DL (7-18); BUN/CREATININE RATIO 16.4 (5.4-32.0); CALCIUM 8.4 MG/DL (8.5-10.1); CHLORIDE 113 MMOL/L (99-107); CREATININE 1.46 MG/DL (0.60-1.10); FERRITIN 97 NG/ML (26-388); GLUCOSE 84 MG/DL (70-104); POTASSIUM 4.7 MMOL/L (3.5-5.1); SODIUM 144 MMOL/L (135-145); TOTAL CARBON DIOXIDE 22.9 MMOL/L (24-32); TOTAL PROTEIN 6.3 G/DL (6.4-8.2); eGFR 49 ML/MIN
[2022-02-18 09:50] LABS: PLATELET ESTIMATE NORMAL; TOTAL CELLS COUNTED 100
[2022-02-18 09:51] LABS: ELLIPTOCYTES FEW; SCHISTOCYTES FEW
--- NOTE | 2022-02-18 12:44 | NUR ---
PATIENT UP TO BATHROOM AT THIS TIME. GAIT STEADY AND BALANCED.
[2022-02-18 15:00] VITALS: BP 112/65
[2022-02-18 17:57] VITALS: BP 125/69
[2022-02-18 17:58] VITALS: BP 120/59
[2022-02-18 17:59] VITALS: BP 107/62
[2022-02-18 18:00] VITALS: BP 125/69
--- NOTE | 2022-02-18 21:23 | NUR ---
Paged Dr. Huffman regarding pt request for Melatonin. MD requested new orders to be placed by this RN via telephone order with read-back.
[2022-02-18 22:00] VITALS: BP 127/83
[2022-02-18] MEDS ORDERED: Melatonin 3mg tablet PO SCH (23:00)
[2022-02-19 02:00] VITALS: BP 117/69
[2022-02-19] MEDS: normal saline 1000ml 1,000 ML IV SCH ×2 (03:48→11:48)
[2022-02-19 06:25] LABS: ALANINE AMINOTRANSFERASE 20 U/L (12-78); ALBUMIN 2.6 G/DL (3.4-5.0); ALBUMIN/GLOBULIN RATIO 0.8 (1.1-1.5); ALKALINE PHOSPHATASE 135 IU/L (46-116); ANION GAP 6 (8-16); ASPARTATE AMINO TRANSFERASE 30 U/L (10-37); BASOPHILS % (AUTO) 1.7 % (0-1); BILIRUBIN,TOTAL 0.5 MG/DL (0.1-1.0); BLOOD UREA NITROGEN 19 MG/DL (7-18); BUN/CREATININE RATIO 13.9 (5.4-32.0); CALCIUM 8.2 MG/DL (8.5-10.1); CHLORIDE 115 MMOL/L (99-107); CREATININE 1.37 MG/DL (0.60-1.10); EOSINOPHILS # (AUTO) 0.1 X10'3 (0-0.9); GLUCOSE 100 MG/DL (70-104); HEMATOCRIT 33.2 % (42.0-52.0); HEMOGLOBIN 11.2 g/dl (14.0-17.9); LYMPHOCYTES # (AUTO) 0.6 X10'3 (1.1-4.8); LYMPHOCYTES % (AUTO) 21.1 % (21-51); MEAN CORPUSCULAR HEMOGLOBIN 30.1 PG (27.0-31.0); MEAN CORPUSCULAR HGB CONC 33.7 g/dL (33.0-36.5); MEAN CORPUSCULAR VOLUME 89.3 FL (78-98); MEAN PLATELET VOLUME 7.8 FL (7.4-10.4); MONOCYTES # (AUTO) 0.2 X10'3 (0-0.9); MONOCYTES % (AUTO) 8.7 % (2-12); NEUTROPHILS # (AUTO) 1.8 X10'3 (1.8-7.7); NEUTROPHILS % (AUTO) 65.5 % (42-75); PLATELET COUNT 121 X10'3 (140-440); POTASSIUM 4.8 MMOL/L (3.5-5.1); RED BLOOD COUNT 3.72 X10'6 (4.70-6.10); SODIUM 141 MMOL/L (135-145); TOTAL PROTEIN 5.9 G/DL (6.4-8.2); WHITE BLOOD COUNT 2.8 X10'3 (4.5-11.0); eGFR 53 ML/MIN
[2022-02-19 07:00] VITALS: BP 115/82
[2022-02-19 07:20] LABS: PLATELET ESTIMATE DECREASED; TOTAL CELLS COUNTED 100
[2022-02-19] MEDS: K and/or MAG REPLACEMENT MC SCH (08:00)
[2022-02-19] MEDS: docusate sod 100mg capsule PO SCH (08:00)
[2022-02-19] MEDS: ascorbic acid 500mg tablet PO SCH (08:00)
[2022-02-19] MEDS: pantoprazole 40mg Tablet.DR PO SCH (08:00)
[2022-02-19] MEDS ORDERED: iohexol 300mg/ml 100ml inj. ONE (09:16)
--- NOTE | 2022-02-19 11:16 | NUR ---
Nutrition consult re: Weight loss. Pt seen at bedside reports UBW 170 lbs and states he believes he has lost about 28 lbs in eight months. Per EMR pt with scaled wt h/o 143 lbs 04/15/19 and pt reported wt of 139 lbs 10/15/19; current scaled wt is 150 lbs (110% IBW). Documented wt hx in EMR is not consistent with pt reported wt hx. Pt endorses a good appetite and reports eating 100% PO intake of first meal this admit and states he was eating well INSOLE CEMENTER. Per pt food recall pt appears to have been eating adequate portions INSOLE CEMENTER with reports of two full meals a day with snacks and one Ensure Original daily. Of note pt reports he stopped drinking alcohol last year (February 11). Pt possibly experiencing some changes in weight d/t no longer drinking. Pt with no significant visible fat or muscle wasting, has good upsetter helper strength, and no documented edema. Pt denies any constipation, diarrhea, or increase in physical activity. Pt currently lacks a minimum of two criteria for malnutrition. Pt denies food allergies or difficulty chewing or swallowing. ONS coupons and RD contact information provided to pt. Will continue to follow. Addendum: 02/19/22 at [address] Amended: Links added.
--- NOTE | 2022-02-19 14:17 | NUR ---
Patient is alert/oriented x 3, no complain of pain, no distressful, discharge instruction was reviewed with primary RN, answer all patients question, staff brought patient down the lobby and patient sat into his car left hospital at 13:15 PM.
[2022-02-19 15:31] LABS: CANCER ANTIGEN 125 57.8 U/mL (Not Estab.); CARBOHYDRATE ANTIGEN 19-9 31 U/mL (0-35); CARCINOEMBRYONIC ANTIGEN 2.6 ng/mL (0.0-4.7); HBSAG SCREEN Negative (Negative); HEP A AB, IGM Negative (Negative)
[2022-02-19] MEDS ORDERED: Melatonin 3mg tablet PO SCH (21:00)
== END 2022-02-19 14:24 | disposition home or self-care (01) | DRG 433 ==
LOC: ER 18:38 → ED HOLD 02-18 01:28 → PCU 3S 02-18 14:51
PROVIDERS: ADMIT Internal Medicine; ATTEND Family Medicine
DX: K74.60 Unspecified cirrhosis of liver (principal); I20.0 Unstable angina; B19.20 Unspecified viral hepatitis C without hepatic coma; R16.0 Hepatomegaly, not elsewhere classified; G62.9 Polyneuropathy, unspecified; J44.9 Chronic obstructive pulmonary disease, unspecified; K22.70 Barrett's esophagus without dysplasia; F17.200 Nicotine dependence, unspecified, uncomplicated; N18.9 Chronic kidney disease, unspecified; R62.7 Adult failure to thrive; R25.2 Cramp and spasm; R63.4 Abnormal weight loss; R77.2 Abnormality of alphafetoprotein; Z85.89 Personal history of malignant neoplasm of other organs and systems; Z68.25 Body mass index [BMI] 25.0-25.9, adult; Z92.21 Personal history of antineoplastic chemotherapy; Z79.899 Other long term (current) drug therapy
CPT/HCPCS: 36415; 71045; 71260; 74176; 74177; 80053; 80074; 82103; 82378; 82728; 83540; 83550; 83735; 83880; 84132; 84443; 84484; 85007; 85025; 85610; 85730; 86301; 86304; 93306; 93880; 99285; G0378; J3490; J7030; Q9967